=== PATIENT | female | born 1970 | race Hispanic/Latino ===

== ENCOUNTER 2018-01-19 03:51 | Emergency (ER) | payer MEDICAID ==
[2018-01-19] MEDS ORDERED: TETANUS/DIPHTHERIA TOXOID [ADULT] 0.5 ML VIAL IM ONE (04:17)
[2018-01-19] MEDS ORDERED: KETOROLAC TROMETHAMINE 60 MG/2 ML VIAL ONE (06:29)
[2018-01-19] MEDS ORDERED: ORPHENADRINE CITRATE 30 MG/ML ML ONE (06:29)
== END 2018-01-19 08:00 | disposition home or self-care (01) ==
LOC: EDH 03:51
DX: S91.322A Laceration with foreign body, left foot, initial encounter (principal); S91.321A Laceration with foreign body, right foot, initial encounter; S00.03XA Contusion of scalp, initial encounter; S00.83XA Contusion of other part of head, initial encounter; S50.312A Abrasion of left elbow, initial encounter; S50.311A Abrasion of right elbow, initial encounter; S80.212A Abrasion, left knee, initial encounter; S80.211A Abrasion, right knee, initial encounter; Z88.0 Allergy status to penicillin; Z88.8 Allergy status to other drugs, medicaments and biological substances; F32.9 Major depressive disorder, single episode, unspecified; Z90.49 Acquired absence of other specified parts of digestive tract; Z98.890 Other specified postprocedural states; Y04.0XXA Assault by unarmed brawl or fight, initial encounter; Y93.89 Activity, other specified; Y92.89 Other specified places as the place of occurrence of the external cause; Y99.8 Other external cause status
CPT/HCPCS: 73630 ×2; 90471; 90714; 96372 ×2; 99284; J1885; J2360

== ENCOUNTER 2018-04-23 23:35 | Emergency (ER) | payer MEDICAID ==
[2018-04-23] MEDS ORDERED: KETOROLAC TROMETHAMINE 60 MG/2 ML VIAL ONE (23:59)
== END 2018-04-24 00:33 | disposition home or self-care (01) ==
LOC: EDH 23:35
DX: H66.92 Otitis media, unspecified, left ear (principal); F41.9 Anxiety disorder, unspecified; Z88.0 Allergy status to penicillin; Z88.8 Allergy status to other drugs, medicaments and biological substances
CPT/HCPCS: 96372; 99283; J1885

== ENCOUNTER 2018-10-31 20:55 | Emergency (ER) | payer MEDICAID ==
[2018-10-31] MEDS ORDERED: CLINDAMYCIN HCL 150 MG CAP ONE (21:17)
[2018-10-31] MEDS ORDERED: DEXAMETHASONE SOD PHOSPHATE 10MG/ML 1ML VIAL ONE (21:17)
== END 2018-10-31 22:37 | disposition home or self-care (01) ==
LOC: EDH 20:55
DX: J02.9 Acute pharyngitis, unspecified (principal); F41.9 Anxiety disorder, unspecified; F32.9 Major depressive disorder, single episode, unspecified; Z90.49 Acquired absence of other specified parts of digestive tract; Z90.710 Acquired absence of both cervix and uterus; Z88.0 Allergy status to penicillin; Z88.8 Allergy status to other drugs, medicaments and biological substances; Z98.890 Other specified postprocedural states
CPT/HCPCS: 87804 ×2; 96372; 99284; J1100

== ENCOUNTER 2019-05-02 18:29 | Emergency (ER) | payer MEDICAID ==
[2019-05-02] MEDS ORDERED: ORPHENADRINE CITRATE 30 MG/ML ML ONE (18:44)
[2019-05-02] MEDS ORDERED: ACETAMINOPHEN 325 MG TAB ONE (18:44)
== END 2019-05-02 20:01 | disposition home or self-care (01) ==
LOC: EDH 18:29
DX: S29.012A Strain of muscle and tendon of back wall of thorax, initial encounter (principal); J02.9 Acute pharyngitis, unspecified; F32.9 Major depressive disorder, single episode, unspecified; Z88.0 Allergy status to penicillin; Z88.8 Allergy status to other drugs, medicaments and biological substances; X58.XXXA Exposure to other specified factors, initial encounter; Y93.89 Activity, other specified; Y92.89 Other specified places as the place of occurrence of the external cause; Y99.8 Other external cause status; F41.9 Anxiety disorder, unspecified
CPT/HCPCS: 71046; 87880; 96372; 99285; J2360

== ENCOUNTER 2019-07-27 20:54 | Emergency (ER) | payer MEDICAID ==
[2019-07-27] MEDS ORDERED: IPRATROPIUM/ALBUTEROL SULFATE 3 ML SOLUTION IH ONE (21:27)
[2019-07-27] MEDS ORDERED: OXYMETAZOLINE HCL SPRAY 15 ML BOTTLE ONE (21:28)
[2019-07-27 21:42] LABS: RAPID GROUP A STREP NEGATIVE (NEGATIVE)
== END 2019-07-27 22:06 | disposition home or self-care (01) ==
LOC: EDH 20:54
DX: J06.9 Acute upper respiratory infection, unspecified (principal); J01.10 Acute frontal sinusitis, unspecified; F41.9 Anxiety disorder, unspecified; F39 Unspecified mood [affective] disorder; Z90.49 Acquired absence of other specified parts of digestive tract; Z90.710 Acquired absence of both cervix and uterus; Z98.890 Other specified postprocedural states; Z88.8 Allergy status to other drugs, medicaments and biological substances; Z88.0 Allergy status to penicillin; Z88.1 Allergy status to other antibiotic agents; Z88.2 Allergy status to sulfonamides
CPT/HCPCS: 71045; 87804; 87880; 94640

== ENCOUNTER 2019-09-03 21:14 | Emergency (ER) | payer MEDICAID, OTHER | END 2019-09-03 22:17 | disposition home or self-care (01) | LOC: EDH 21:14 | DX: J20.9 Acute bronchitis, unspecified (principal); F41.9 Anxiety disorder, unspecified; F32.9 Major depressive disorder, single episode, unspecified; Z88.0 Allergy status to penicillin; Z88.8 Allergy status to other drugs, medicaments and biological substances; Z90.710 Acquired absence of both cervix and uterus; Z98.890 Other specified postprocedural states ==

== ENCOUNTER 2019-10-21 16:03 | Emergency (ER) | payer SELFPAY ==
[2019-10-21] MEDS ORDERED: LIDOCAINE HCL 1% 20 ML VIAL ONE (16:22)
[2019-10-21] MEDS ORDERED: OCTYL 2-CYANOACRYLATE 1 EACH TP ONE (16:26)
[2019-10-21] MEDS ORDERED: TETANUS/DIPHTHERIA TOXOID [ADULT] 0.5 ML VIAL IM ONE (16:33)
== END 2019-10-21 16:40 | disposition home or self-care (01) ==
LOC: EDH 16:03
DX: S61.217A Laceration without foreign body of left little finger without damage to nail, initial encounter (principal); F41.9 Anxiety disorder, unspecified; F32.9 Major depressive disorder, single episode, unspecified; Z90.710 Acquired absence of both cervix and uterus; Z90.49 Acquired absence of other specified parts of digestive tract; Z88.0 Allergy status to penicillin; W45.8XXA Other foreign body or object entering through skin, initial encounter; Y92.89 Other specified places as the place of occurrence of the external cause; Y99.8 Other external cause status; Y93.89 Activity, other specified
CPT/HCPCS: 12001; 73140; 90471; 90714

== ENCOUNTER 2020-06-16 23:31 | Emergency (ER) | payer OTHER ==
[2020-06-16] MEDS ORDERED: KETOROLAC TROMETHAMINE 60 MG/2 ML VIAL ONE (23:51)
[2020-06-17] MEDS ORDERED: CYCLOBENZAPRINE HCL 10 MG TABLET ONE (01:45)
[2020-06-17] MEDS ORDERED: LIDOCAINE 5% TOPICAL PATCH TP ONE (01:45)
[2020-06-17] MEDS ORDERED: HYDROCODONE/ACETAMINOPHEN 5/325 MG TAB ONE (01:45)
== END 2020-06-17 02:03 | disposition home or self-care (01) ==
LOC: EDH 23:31
DX: M62.830 Muscle spasm of back (principal); F41.9 Anxiety disorder, unspecified; F32.9 Major depressive disorder, single episode, unspecified; Z88.0 Allergy status to penicillin; Z90.710 Acquired absence of both cervix and uterus; Z88.8 Allergy status to other drugs, medicaments and biological substances
CPT/HCPCS: 96372; 99284; J1885

== ENCOUNTER 2021-05-18 23:01 | Emergency (ER) | payer SELFPAY ==
[~2021-05-18] VITALS: Ht 162.6 cm; Wt 82.1 kg
[2021-05-19 01:36] LABS: APPEARANCE,URINE Clear (CLEAR); BILIRUBIN,URINE Negative (NEGATIVE); COLOR,URINE Yellow (YELLOW); GLUCOSE, URINE (UA) Negative (NEGATIVE); KETONES,URINE Negative (NEGATIVE); LEUKOCYTE ESTERASE ,URINE Negative (NEGATIVE); NITRATE,URINE Negative (NEGATIVE); OCCULT BLOOD,URINE Small (NEGATIVE); PROTEIN,URINE Negative (NEGATIVE)
[2021-05-19 01:45] LABS: BACTERIA,URINE None Seen /HPF (None Seen); MUCUS,URINE Few LPF (None Seen); RBC,URINE 0-1 /HPF (0-1); SQUAMOUS EPITHELIAL CELL,UR Few /HPF (0-2); WBC,URINE None Seen /HPF (0-1)
[2021-05-19 03:06] LABS: BASOPHILS % (AUTO) 0.6 % (0.0-5.0); EOSINOPHILS % (AUTO) 1.4 % (0.0-8.0); HEMATOCRIT 37.5 % (36-48); LYMPHOCYTES % (AUTO) 35.9 % (21.0-51.0); MEAN CORPUSCULAR HGB CONC 33.6 g/dL (32.0-36.0); MEAN CORPUSCULAR VOLUME 92.4 fL (79-99); MONOCYTES % (AUTO) 8.2 % (3.0-13.0); NEUTROPHILS % (AUTO) 53.8 % (40.0-77.0); PLATELET COUNT (AUTO) 301 K/uL (130-400); RED BLOOD CELL COUNT(AUTO) 4.06 MIL/uL (4.00-5.50); WHITE BLOOD COUNT (AUTO) 8.1 K/uL (4.8-10.8)
[2021-05-19 03:16] LABS: CREATININE 0.8 mg/dL (0.5-1.5); POTASSIUM 4.2 mmol/L (3.5-5.1)
[2021-05-19 03:21] LABS: ALBUMIN 3.5 g/dL (3.5-5.0); BILIRUBIN,TOTAL 0.3 mg/dL (0.2-1.0); TOTAL PROTEIN, SERUM 7.6 g/dL (6.0-8.3)
[2021-05-19] MEDS ORDERED: HYDROCODONE/ACETAMINOPHEN 5/325 MG TAB PO SCH (07:00)
[2021-05-19] MEDS ORDERED: KETOROLAC 15MG/ML VIAL (15MG/ML) IV ONE (07:00)
[2021-05-19] MEDS ORDERED: SOLU-MEDROL 125MG VIAL IVP ONE (07:00)
[2021-05-19] MEDS ORDERED: METH4TAB3 PO (07:07)
[2021-05-19 08:41] VITALS: BP 116/69
== END 2021-05-19 08:42 | disposition home or self-care (01) ==
LOC: EDH 23:01
DX: M25.551 Pain in right hip (principal); M79.18 Myalgia, other site; R10.31 Right lower quadrant pain; Z88.0 Allergy status to penicillin; Z88.8 Allergy status to other drugs, medicaments and biological substances; Z79.52 Long term (current) use of systemic steroids; Z79.1 Long term (current) use of non-steroidal anti-inflammatories (NSAID); Z90.49 Acquired absence of other specified parts of digestive tract
CPT/HCPCS: 36415; 73630; 74176; 80053; 81001; 84484; 85025; 96374; 96375; 99285; J1885; J2930

== ENCOUNTER 2021-05-30 13:45 | Emergency (ER) | payer SELFPAY ==
[~2021-05-30] VITALS: Ht 162.6 cm; Wt 83.0 kg
[~2021-05-30 13:45] MED LIST: METH4TAB3 PO
[2021-05-30 14:58] LABS: APPEARANCE,URINE Clear (CLEAR); BILIRUBIN,URINE Negative (NEGATIVE); COLOR,URINE Yellow (YELLOW); GLUCOSE, URINE (UA) Negative (NEGATIVE); KETONES,URINE 40 mg/dL (NEGATIVE); LEUKOCYTE ESTERASE ,URINE Negative (NEGATIVE); NITRATE,URINE Negative (NEGATIVE); OCCULT BLOOD,URINE Small (NEGATIVE); PH,URINE 5.5 (5.0-8.0); PROTEIN,URINE Negative (NEGATIVE)
[2021-05-30 15:17] LABS: BACTERIA,URINE Few /HPF (None Seen); MUCUS,URINE Moderate LPF (None Seen); SQUAMOUS EPITHELIAL CELL,UR Few /HPF (0-2)
[2021-05-30 15:38] LABS: BASOPHILS % (AUTO) 0.3 % (0.0-5.0); EOSINOPHILS % (AUTO) 0.3 % (0.0-8.0); HEMATOCRIT 37.3 % (36-48); LYMPHOCYTES % (AUTO) 17.5 % (21.0-51.0); MEAN CORPUSCULAR HEMOGLOBIN 30.7 pg (27.0-33.0); MEAN CORPUSCULAR HGB CONC 33.8 g/dL (32.0-36.0); MEAN CORPUSCULAR VOLUME 90.8 fL (79-99); MONOCYTES % (AUTO) 7.9 % (3.0-13.0); NEUTROPHILS % (AUTO) 73.7 % (40.0-77.0); PLATELET COUNT (AUTO) 315 K/uL (130-400); RED BLOOD CELL COUNT(AUTO) 4.11 MIL/uL (4.00-5.50); RED CELL DISTRIBUTION WIDTH 12.3 % (11.0-15.5); WHITE BLOOD COUNT (AUTO) 13.5 K/uL (4.8-10.8)
[2021-05-30 15:48] LABS: CREATININE 0.8 mg/dL (0.5-1.5); POTASSIUM 3.6 mmol/L (3.5-5.1)
[2021-05-30] MEDS ORDERED: FAMOTIDINE 20MG TAB ONE (15:50)
[2021-05-30] MEDS ORDERED: ONDANSETRON 4MG INJ ONE (15:51)
[2021-05-30] MEDS ORDERED: KETOROLAC 30MG VIAL (30MG/ML) ONE (15:51)
[2021-05-30 15:53] LABS: ALBUMIN 3.5 g/dL (3.5-5.0); BILIRUBIN,TOTAL 0.8 mg/dL (0.2-1.0); TOTAL PROTEIN, SERUM 7.9 g/dL (6.0-8.3)
[2021-05-30] MEDS ORDERED: KETOROLAC 30MG VIAL (30MG/ML) IVP ONE (16:00)
[2021-05-30] MEDS ORDERED: ONDANSETRON 4MG INJ IVP ONE (16:00)
[2021-05-30] MEDS ORDERED: FAMOTIDINE 20MG TAB PO ONE (16:00)
[2021-05-30 16:32] LABS: AMYLASE 41 U/L (25-115); LIPASE 50 U/L (114-286)
[2021-05-30] MEDS ORDERED: LEVOFLOXACIN 500 MG/D5W 100 ML 100 ML IV STA (18:47)
[2021-05-30] MEDS ORDERED: METRONIDAZOLE 500MG/100ML BAG 100 ML IVPB STA (18:47)
[2021-05-30] MEDS ORDERED: LEVOFLOXACIN 500 MG/D5W 100 ML 100 ML ONE (18:54)
[2021-05-30] MEDS ORDERED: IBUP-2088 PO (19:10)
[2021-05-30] MEDS ORDERED: LEVO750T46 PO (19:10)
[2021-05-30] MEDS ORDERED: ONDA4TAB4 PO (19:10)
[2021-05-30] MEDS ORDERED: FAMO-136 PO (19:10)
[2021-05-30] MEDS ORDERED: METR375C2 PO (19:10)
[2021-05-30] MEDS ORDERED: METRONIDAZOLE 500 MG TABLET PO SCH (20:00)
[2021-05-30 20:28] VITALS: BP 128/78
== END 2021-05-30 21:10 | disposition home or self-care (01) ==
LOC: EDH 13:45
DX: K57.32 Diverticulitis of large intestine without perforation or abscess without bleeding (principal); Z88.0 Allergy status to penicillin; Z79.52 Long term (current) use of systemic steroids; Z79.1 Long term (current) use of non-steroidal anti-inflammatories (NSAID); Z79.899 Other long term (current) drug therapy; Z88.8 Allergy status to other drugs, medicaments and biological substances; Z90.721 Acquired absence of ovaries, unilateral
CPT/HCPCS: 36415; 74176; 80053; 81001; 82150; 83690; 85025; 93005 ×2; 96365; 96366; 96375; 99285; J1885; J1956; J2405

== ENCOUNTER 2021-07-15 10:11 | Emergency (ER) | payer SELFPAY ==
[~2021-07-15] VITALS: Ht 162.6 cm; Wt 81.2 kg
[~2021-07-15 10:11] MED LIST changes: +FAMO-136 PO; +IBUP-2088 PO; +LEVO750T46 PO; +METR375C2 PO; +ONDA4TAB4 PO
[2021-07-15 10:30] LABS: BASOPHILS % (AUTO) 0.3 % (0.0-5.0); EOSINOPHILS % (AUTO) 0.6 % (0.0-8.0); HEMATOCRIT 38.7 % (36-48); LYMPHOCYTES % (AUTO) 12.4 % (21.0-51.0); MEAN CORPUSCULAR HEMOGLOBIN 30.6 pg (27.0-33.0); MEAN CORPUSCULAR HGB CONC 33.3 g/dL (32.0-36.0); MEAN CORPUSCULAR VOLUME 91.7 fL (79-99); MONOCYTES % (AUTO) 10.4 % (3.0-13.0); PLATELET COUNT (AUTO) 302 K/uL (130-400); RED BLOOD CELL COUNT(AUTO) 4.22 MIL/uL (4.00-5.50); RED CELL DISTRIBUTION WIDTH 12.9 % (11.0-15.5); WHITE BLOOD COUNT (AUTO) 7.1 K/uL (4.8-10.8)
[2021-07-15 10:40] LABS: CREATININE 0.7 mg/dL (0.5-1.5); POTASSIUM 3.9 mmol/L (3.5-5.1)
[2021-07-15 10:45] LABS: ALBUMIN 3.5 g/dL (3.5-5.0); BILIRUBIN,TOTAL 0.4 mg/dL (0.2-1.0); TOTAL PROTEIN, SERUM 8.1 g/dL (6.0-8.3)
[2021-07-15] MEDS ORDERED: IOHEXOL-350 75 ML VIAL IV ONE (10:56)
[2021-07-15] MEDS ORDERED: ACETAMINOPHEN 500 MG TABLET PO SCH (11:00)
[2021-07-15] MEDS ORDERED: 0.9%NACL 1000ML 1,000 ML IV SCH (11:00)
[2021-07-15] MEDS ORDERED: KETOROLAC 30MG VIAL (30MG/ML) IV SCH (11:00)
[2021-07-15 11:14] LABS: APPEARANCE,URINE Clear (CLEAR); BILIRUBIN,URINE Negative (NEGATIVE); COLOR,URINE Yellow (YELLOW); GLUCOSE, URINE (UA) Negative (NEGATIVE); KETONES,URINE Negative (NEGATIVE); LEUKOCYTE ESTERASE ,URINE Negative (NEGATIVE); NITRATE,URINE Negative (NEGATIVE); OCCULT BLOOD,URINE Nonhemolyzed Trace (NEGATIVE); PROTEIN,URINE Negative (NEGATIVE); UROBILINOGEN,URINE 0.2 mg/dL (0.2-1.0)
[2021-07-15 11:22] LABS: BACTERIA,URINE Rare /HPF (None Seen); SQUAMOUS EPITHELIAL CELL,UR Rare /HPF (0-2); WBC,URINE 0-1 /HPF (0-1)
[2021-07-15] MEDS ORDERED: LEVOFLOXACIN 750 MG/D5W 150 ML 150 ML IV SCH (12:14)
[2021-07-15] MEDS ORDERED: METRONIDAZOLE 500MG/100ML BAG 100 ML IVPB SCH (12:14)
[2021-07-15] MEDS ORDERED: METR-172 PO (13:18)
[2021-07-15] MEDS ORDERED: HYOS0.124 SL (13:18)
[2021-07-15] MEDS ORDERED: LEVO500T90 PO (13:18)
[2021-07-15] MEDS ORDERED: METRONIDAZOLE 500 MG TABLET PO SCH (14:00)
[2021-07-15 14:39] VITALS: BP 131/78
== END 2021-07-15 15:15 | disposition home or self-care (01) ==
LOC: EDH 10:11
DX: K57.32 Diverticulitis of large intestine without perforation or abscess without bleeding (principal); Z88.0 Allergy status to penicillin; Z88.8 Allergy status to other drugs, medicaments and biological substances; Z79.1 Long term (current) use of non-steroidal anti-inflammatories (NSAID); Z79.52 Long term (current) use of systemic steroids; Z79.899 Other long term (current) drug therapy; Z90.49 Acquired absence of other specified parts of digestive tract
CPT/HCPCS: 36415; 74177; 80053; 81001; 83690; 84484; 85025; 87040 ×2; 93005; 96361; 96374; 99285; J1885; J1956; J7030 ×2; Q9967

== ENCOUNTER 2024-10-02 19:16 | Emergency (ER) | payer OTHER ==
[~2024-10-02] VITALS: Ht 162.6 cm; Wt 79.4 kg
[~2024-10-02 19:16] MED LIST changes: +ACET-2079 PO; +CIPR-278 PO; +HYOS0.124 SL; +LEVO-70 PO; -LEVO750T46 PO; +LEVO750T68 PO; +METR-172 PO
--- NOTE | 2024-10-02 19:20 | NUR ---
UA CUP PROVIDED
--- NOTE | 2024-10-02 19:23 | ERN ---
ED Note History of Present Illness Stated Complaint: FEVER, BLADDER PAIN Chief Complaint: Urinary Frequency Time Seen by MD: 19:21 Time Seen by Midlevel: 19:21 Dictation: Ms. Carter is a 54-year-old female with history of diverticulosis, fibromyalgia, anxiety, depression, seizure disorder, heart disease, and sciatica who presented to the emergency department for evaluation of dysuria. She states this afternoon she developed frequent urination with suprapubic pain and suspected low-grade fever. She states that her urine is clear but now she feels like she is becoming dehydrated with slight nausea and worsening suprapubic pain p rompting her to come to the hospital. She denies having chest pain, palpitations, shortness of breath, cough, abdominal pain, vomiting, diarrhea, hematuria, flank pain, headache, or dizziness. Allergies: Coded Allergies: Penicillins (Unverified Allergy, Unknown, 09/03/19) divalproex sodium (Unverified Allergy, Unknown, 09/03/19) phenytoin (Unverified Allergy, Unknown, 09/03/19) povidone-iodine (Unverified Allergy, Unknown, 09/03/19) soap (Unverified Allergy, Unknown, 09/03/19) Home Meds Active Scripts Acetaminophen with Codeine (Acetaminophen-Cod #3 Tablet) 1 Each Tablet, 1-2 TAB PO Q6H PRN for SEVERE PAIN (7-10), #12 TAB 0 Refills Prov:DAVID JOSE MD 10/13/21 Metronidazole (Metronidazole) 500 Mg Tablet, 500 MG PO TID for 7 Days, #21 TAB 0 Refills Prov:DAVID JOSE MD 10/13/21 Ciprofloxacin HCl (Cipro) 500 Mg Tablet, 1 TAB PO BID for 7 Days, #14 TAB 0 Refills Prov:DAVID JOSE MD 10/13/21 Hyoscyamine Sulfate (Levsin-Sl) 0.125 Mg Tab.subl, 0.125 MG SL TIDP PRN for ABDOMINAL PAIN, #20 TAB.SL 0 Refills Prov:DAVID JOSE MD 07/15/21 Metronidazole (Metronidazole) 500 Mg Tablet, 500 MG PO TID for 10 Days, #30 TAB 0 Refills Prov:DAVID JOSE MD 07/15/21 Levofloxacin (Levofloxacin) 500 Mg Tablet, 1 TAB PO DAILY for 10 Days, #10 TAB 0 Refills Prov:DAVID JOSE MD 07/15/21 Famotidine (Pepcid) 20 Mg Tablet, 20 MG PO BID, #30 TAB Prov:SAHRA FONTANA NP 05/30/21 Ibuprofen (Motrin/Advil) 600 Mg Tab, 600 MG PO Q6HPRN, #20 TAB Prov:SAHRA FONTANA NP 05/30/21 Ondansetron HCl (Zofran) 4 Mg Tablet, 8 MG PO Q8H PRN for NAUSEA/VOMITING for 5 Days, #20 TAB 0 Refills Prov:SAHRA FONTANA NP 05/30/21 Metronidazole (Flagyl) 375 Mg Capsule, 500 MG PO BID, #20 CAP Prov:SAHRA FONTANA NP 05/30/21 Levofloxacin (Levaquin 750Mg Tabs) 750 Mg Tablet, 500 MG PO DAILY, #10 TAB Prov:SAHRA FONTANA NP 05/30/21 Methylprednisolone (Medrol) 4 Mg Tab.ds.pk, 4 MG PO AD, #1 PACK Prov:FARZANA ARCHULETA MD 05/19/21 Past Medical History Past Medical History: Anxiety, Depression, Diverticulitis, Diverticulosis, Fibromyalgia, Heart Disease, Seizure, Other Additional Past Medical Hx: SCIATIC Surgical History: Appendectomy, Hysterectomy, Tonsillectomy, BTL Surgical History Other: BREAST BX, TOE SX PSYCH History: anxiety, depression Social History: Negative, Lives with family, Other History: Not Applicable RN Note Reviewed/Agreed w/PFSH: Yes Review of System Dictation REVIEW OF SYSTEMS: CONSTITUTIONAL: Patient denies chills, sweats, or weight changes. Reports feeling feverish EYES: Patient denies any visual symptoms. EARS, NOSE, AND THROAT: No difficulties with hearing. No symptoms of rhinitis or sore throat. CARDIOVASCULAR: Patient denies chest pains, palpitations, orthopnea and paroxysmal nocturnal dyspnea. RESPIRATORY: No dyspnea on exertion, no wheezing or cough. GI: No vomiting, diarrhea, constipation, abdominal pain, hematochezia or melena. Reports slight nausea. : No urinary hesitancy or dribbling. No abnormal urethral discharge. No hematuria. No flank pain. Reports suprapubic pain and frequent urination. MUSCULOSKELETAL: No myalgias or arthralgias. NEUROLOGIC: No chronic headaches, no seizures. Patient denies numbness, tingling or weakness. PSYCHIATRIC: Patient denies problems with mood disturbance. No problems with anxiety. ENDOCRINE: No excessive urination or excessive thirst. DERMATOLOGIC: Patient denies any rashes or skin changes. Initial Vital Sign VS Vital Signs Date Time Temp Pulse Resp B/P (MAP) Pulse Ox O2 Delivery O2 Flow Rate FiO2 10/02/24 19:17 99.1 90 20 151/77 99 Room Air 10/02/24 21:00 0 21 Physical Exam Dictation Vital signs: Reviewed. Temperature 99.1 Constitutional: No acute distress. Non-toxic appearing. Head/Face: Normocephalic, atraumatic. Eyes: Periorbital areas with no swelling, redness, or edema. Lids and lashes are normal. Conjunctival injection is absent. Sclera anicteric. Pupils equal, round, reactive to light. ENT: Pinnas intact and no signs of trauma or erythema. Ear canals clear and no discharge. TMs no erythema. No nasal discharge or bleeding noted. Oropharynx with no exudate, redness, swelling, masses, exudates, or evidence of obstruction. Uvula midline. Mucous membranes moist. Neck: Trachea midline, no masses palpated, and no cervical lymphadenopathy. No swelling. Supple, full range of motion. Chest/Axilla: No tenderness, no crepitus, no paradoxical movement, no retractions. Cardiovascular: Regular rate, regular rhythm, no murmur, no gallops. Symmetric pulses. No peripheral edema. Respiratory: Respirations even and unlabored. Lung sounds clear; no wheezes, rales or rhonchi. Room air SpO2 99% Gastrointestinal: Obese. No distention is appreciated. Bowel sounds are normal. No mass or organomegaly . There is no tenderness. No rebound. No rigidity. No voluntary or involuntary guarding. No Shannon's sign. : Has not yet voided. Negative CVA tenderness bilaterally.+ suprapubic pain. Neurological: Normal speech, gross motor function intact, gross sensory function intact. No focal weakness/Paresthesia. Musculoskeletal/Extremities: All extremities have full range of motion, no pain or tenderness on palpation. Symmetric pulses. Integumentary: Intact. Skin is flushed, warm and dry. Cap refill less than 2 seconds. Results (Laboratory/Radiology) Laboratory/Radiology Laboratory Tests Test 10/02/24 19:57 10/02/24 21:12 10/02/24 21:42 Urine Color COLORLESS (YELLOW) Urine Appearance CLEAR (CLEAR) Urine pH 7.0 (5.0-8.0) Urine Specific Thornton 1.008 (1.001-1.031) Urine Protein NEGATIVE mg/dL (NEGATIVE) Urine Glucose (UA) NEGATIVE mg/dL (NEGATIVE) Urine Ketones NEGATIVE mg/dL (NEGATIVE) Urine Occult Blood +- (TRACE) (NEGATIVE) H Urine Nitrate NEGATIVE (NEGATIVE) Urine Bilirubin NEGATIVE mg/dL (NEGATIVE) Urine Urobilinogen 0.2 mg/dL (0.2-1.0) Urine Leukocyte Esterase NEGATIVE Seda/uL Urine RBC 2-5 /HPF (0-1) H Urine WBC 0-1 /HPF (0-1) Urine Squamous Epithelial Cells RARE /HPF (0-2) Urine Bacteria None /HPF (None Seen) White Blood Count 7.5 K/uL (4.8-10.8) Red Blood Count 4.23 MIL/uL (4.00-5.50) Hemoglobin 13.1 g/dL (12.0-16.0) Hematocrit 38.6 % (36-48) Mean Corpuscular Volume 91.3 fL (79-99) Mean Corpuscular Hemoglobin 31.0 pg (27.0-33.0) Mean Corpuscular Hemoglobin Concent 33.9 g/dL (32.0-36.0) Red Cell Distribution Width 12.9 % (11.0-15.5) Platelet Count 286 K/uL (130-400) Mean Platelet Volume 9.8 fL (7.5-10.5) Immature Granulocyte % (Auto) 0.3 % (0-1) Neutrophils (%) (Auto) 62.2 % (40.0-77.0) Lymphocytes (%) (Auto) 26.8 % (21.0-51.0) Monocytes (%) (Auto) 8.7 % (3.0-13.0) Eosinophils (%) (Auto) 1.5 % (0.0-8.0) Basophils (%) (Auto) 0.5 % (0.0-5.0) Neutrophils # (Auto) 4.6 K/uL (1.8-7.7) Lymphocytes # (Auto) 2.0 K/uL (1.0-4.8) Monocytes # (Auto) 0.7 K/uL (0.1-1.0) Eosinophils # (Auto) 0.11 K/uL (0.00-0.70) Basophils # (Auto) 0.04 K/uL (0.00-0.20) Absolute Immature Granulocyte (auto 0.02 K/uL (0-1) Nucleated Red Blood Cells 0.0 % (0.0-0.19) Sodium Level 132 mmol/L (136-145) L Potassium Level 3.7 mmol/L (3.5-5.1) Chloride Level 99 mmol/L (101-111) L Carbon Dioxide Level 28 mmol/L (21-32) Blood Urea Nitrogen 11 mg/dL (7-18) Creatinine 0.7 mg/dL (0.5-1.0) Glomerular Filtration Rate Calc 102 mL/min (>90) Random Glucose 101 mg/dL (70-105) Total Calcium 8.6 mg/dL (8.5-10.1) Labs Reviewed?: Yes CT Scan Comment: PATIENT: CLOVIS CARTER MR#: [id number] : 1970 SEX: F AGE: 54 LOCATION: [facility] ORDER 53 STATUS: [facility] REPORT#: [id number] SERVICE 52 REASON: hematuria, suprapubic pain ORDERING PHYSICIAN: ANDREA SOLORZANO NP PROCEDURE: ABD PEL WO - CT ABDOMEN/PELVIS W/O CONTRAST CT ABDOMEN/PELVIS W/O CONTRAST INDICATION: hematuria, suprapubic pain TECHNIQUE: CT ABDOMEN/PELVIS W/O CONTRAST. Oral contrast was not given. Coronal and sagittal reformats were performed. CT was performed with one or more of the following dose reduction techniques: Automated exposure control, adjustment of the mA and/or kV according to the patient's size, or use of the iterative reconstruction technique. Comparison: 10/13/2021 FINDINGS: The noncontrast nature this study limits evaluation of abdominal viscera. No pulmonary consolidation or pleural effusion is seen. There is hepatic steatosis. No calcified gallstone is seen. The spleen, pancreas, and adrenal glands are within normal limits. No hydronephrosis seen. Questionable mild urinary bladder wall thickening. Correlate with urinalysis. Diverticulosis coli without CT evidence of acute diverticulitis. There is no free abdominal air. No bowel obstruction identified. Appendix is not clearly visualized limiting evaluation. Correlate clinically. Degenerative changes of the spine. Visualized aorta is normal in caliber. IMPRESSION: 1. No hydronephrosis seen. Questionable mild urinary bladder wall thickening. Correlate with urinalysis. 2. Diverticulosis coli without CT evidence of acute diverticulitis. DICTATED BY: JOSEPH CHASE MD DATE: 10/02/242106 ELECTRONICALLY SIGNED BY: JOSEPH CHASE MD DATE: 10/02/242110 ED Course ED Course Orders Procedure Category Date Status Time Urinalysis Profile LAB 10/02/24 Complete 19:22 Ct Abdomen/Pelvis W/O CT 10/02/24 Resulted Contrast 20:53 Cbc With Differential LAB 10/02/24 Complete 20:53 Basic Metabolic Panel LAB 10/02/24 Complete 20:53 Ketorolac PHA 10/02/24 Complete Tromethamine 30mg/Ml 21:00 Ketorolac PHA 10/02/24 Complete Tromethamine 30mg/Ml 20:59 Current Medications Medications (Trade) Dose Ordered Sig/Richard Route PRN Reason Start Time Stop Time Status Last Admin Dose Admin Ketorolac Tromethamine (toRADol) 30 mg ONCE ONCE IM 10/02/24 21:00 10/02/24 21:01 DC 10/02/24 21:05 Ketorolac Tromethamine (toRADol) 30 mg STK-MED ONCE .ROUTE 10/02/24 20:59 10/02/24 20:59 DC Vital Signs Date Time Temp Pulse Resp B/P (MAP) Pulse Ox O2 Delivery O2 Flow Rate FiO2 10/02/24 21:00 98.6 84 18 160/66 98 Room Air* 0 21 10/02/24 19:17 99.1 90 20 151/77 99 Room Air Uneventful ED course. Patient received dose IM Toradol for discomfort; pain decreased. She remains afebrile. UA positive for blood. CT scan of the abdomen and pelvis revealed diverticulosis without diverticulitis. No kidney stone. No hydronephrosis. Findings were discussed with patient and all questions were answered. Medical Decision Making MDM MDM: Differential diagnosis: UTI, kidney stone, diverticulitis Rationale: Tests considered and ordered secondary to shared decision making include: Lab, UA, CT scan Previous outside records reviewed: Old ER visits. Risk of complication and/or morbidity or mortality of patient management: None Medications-Per medication reconciliation Need for hospitalization: Patient does not meet criteria for hospitalization. Need for emergency major/minor surgery: No There are no social concerns with this patient. Prescription drug management: Zofran, Pyridium, nitrofurantoin Prescriptions will include symptomatic care Patient's prior external medical records from other ER visits were reviewed by me as indicated. Prior testing and results from previous visits were reviewed. Prior tests were taken into account with medical decision making and resource utilization, independent historian/historians were used to obtain complete medical history. I independently interpreted the test that were performed, results were reviewed by me and considered findings on radiology if ordered. Medical management and examination interpretation discussions were had by me with other qualified healthcare professionals as indicated for the patient's care. DX & DISP Disposition: Discharge Departure Impression: Primary Impression: Cystitis Additional Impression: Diverticulosis Condition: Stable Scripts Phenazopyridine HCl (Pyridium) 100 Mg Tab 1 TAB PO TID for urinary discomfort for 2 Days, #6 TAB 0 Refills Prov: ANDREA SOLORZANO TECHNICAL ACCOUNT MANAGER 10/02/24 Ondansetron (Ondansetron Odt) 4 Mg Tab.rapdis 4 MG PO Q6HPRN PRN for nausea, #15 TAB 0 Refills Prov: ANDREA SOLORZANO TECHNICAL ACCOUNT MANAGER 10/02/24 Nitrofurantoin Macrocrystal (Nitrofurantoin) 100 Mg Capsule 1 CAP PO BID for 7 Days, #14 CAP 0 Refills Prov: ANDREA SOLORZANO TECHNICAL ACCOUNT MANAGER 10/02/24 Additional Instructions: Rest. Drink plenty of fluids. Avoid fatty/spicy foods. Start antibiotic nitrofurantoin twice daily x7 days. May take Pyridium every8 hours as needed for discomfort. May take Zofran ODT every 6 hours as needed for nausea. Follow up with your primary care physician in the next few days. Return to the emergency department for any worsening of symptoms or concerns. Referrals: KOBE HOU MD (PCP) Time of Disposition: 22:26 ANDREA SOLORZANO TECHNICAL ACCOUNT MANAGER Oct 02, 2024 19:23
[2024-10-02 20:13] LABS: ADD UA MICROSCOPIC YES; APPEARANCE,URINE CLEAR (CLEAR); BILIRUBIN,URINE NEGATIVE (NEGATIVE); COLOR,URINE COLORLESS (YELLOW); GLUCOSE, URINE (UA) NEGATIVE (NEGATIVE); KETONES,URINE NEGATIVE (NEGATIVE); LEUKOCYTE ESTERASE ,URINE NEGATIVE Leu/uL (NEGATIVE); NITRATE,URINE NEGATIVE (NEGATIVE); PROTEIN,URINE NEGATIVE (NEGATIVE); UROBILINOGEN,URINE 0.2 mg/dL (0.2-1.0)
[2024-10-02 20:18] LABS: SQUAMOUS EPITHELIAL CELL,UR RARE /HPF (0-2); WBC,URINE 0-1 /HPF (0-1)
[2024-10-02] MEDS: ketOROlac 30MG VIAL (30MG/ML) IM ONE (21:05)
[2024-10-02] MEDS: ketOROlac 30MG VIAL (30MG/ML) ONE (21:05)
--- NOTE | 2024-10-02 21:11 | HMCIMG ---
CT ABDOMEN/PELVIS W/O CONTRAST INDICATION: hematuria, suprapubic pain TECHNIQUE: CT ABDOMEN/PELVIS W/O CONTRAST. Oral contrast was not given. Coronal and sagittal reformats were performed. CT was performed with one or more of the following dose reduction techniques: Automated exposure control, adjustment of the mA and/or kV according to the patient's size, or use of the iterative reconstruction technique. Comparison: 10/13/2021 FINDINGS: The noncontrast nature this study limits evaluation of abdominal viscera. No pulmonary consolidation or pleural effusion is seen. There is hepatic steatosis. No calcified gallstone is seen. The spleen, pancreas, and adrenal glands are within normal limits. No hydronephrosis seen. Questionable mild urinary bladder wall thickening. Correlate with urinalysis. Diverticulosis coli without CT evidence of acute diverticulitis. There is no free abdominal air. No bowel obstruction identified. Appendix is not clearly visualized limiting evaluation. Correlate clinically. Degenerative changes of the spine. Visualized aorta is normal in caliber. IMPRESSION: 1. No hydronephrosis seen. Questionable mild urinary bladder wall thickening. Correlate with urinalysis. 2. Diverticulosis coli without CT evidence of acute diverticulitis.
[2024-10-02 21:21] LABS: BASOPHILS # (AUTO) 0.04 K/uL (0.00-0.20); BASOPHILS % (AUTO) 0.5 % (0.0-5.0); EOSINOPHILS # (AUTO) 0.11 K/uL (0.00-0.70); EOSINOPHILS % (AUTO) 1.5 % (0.0-8.0); HEMATOCRIT 38.6 % (36-48); IMMATURE GRANULOCYTE ABSOLUTE 0.02 K/uL (0-1); LYMPHOCYTES % (AUTO) 26.8 % (21.0-51.0); MEAN CORPUSCULAR HGB CONC 33.9 g/dL (32.0-36.0); MEAN CORPUSCULAR VOLUME 91.3 fL (79-99); MONOCYTES # (AUTO) 0.7 K/uL (0.1-1.0); MONOCYTES % (AUTO) 8.7 % (3.0-13.0); NEUTROPHILS # (AUTO) 4.6 K/uL (1.8-7.7); NEUTROPHILS % (AUTO) 62.2 % (40.0-77.0); PLATELET COUNT (AUTO) 286 K/uL (130-400); RED BLOOD CELL COUNT(AUTO) 4.23 MIL/uL (4.00-5.50); RED CELL DISTRIBUTION WIDTH 12.9 % (11.0-15.5); WHITE BLOOD COUNT (AUTO) 7.5 K/uL (4.8-10.8)
[2024-10-02 22:08] LABS: CREATININE 0.7 mg/dL (0.5-1.0); POTASSIUM 3.7 mmol/L (3.5-5.1)
[2024-10-02] MEDS ORDERED: ONDA-243 PO (22:25)
[2024-10-02] MEDS ORDERED: PHEN-846 PO (22:25)
[2024-10-02] MEDS ORDERED: NITR100C PO (22:25)
[2024-10-02 22:39] VITALS: BP 152/52; PULSE 81; RESP 16; TEMP 98.2; O2SAT 97
== END 2024-10-02 22:50 | disposition home or self-care (01) ==
LOC: EDH 19:16
DX: N30.91 Cystitis, unspecified with hematuria (principal); K57.30 Diverticulosis of large intestine without perforation or abscess without bleeding; M79.7 Fibromyalgia; Z88.0 Allergy status to penicillin; Z88.8 Allergy status to other drugs, medicaments and biological substances; Z90.49 Acquired absence of other specified parts of digestive tract; Z90.710 Acquired absence of both cervix and uterus; Z91.041 Radiographic dye allergy status
CPT/HCPCS: 99285; 74176; 80048; 85025; 81001; 36415; 96372; J1885